=== PATIENT | male | born 2000 | race Caucasian/White ===

== ENCOUNTER 2024-02-12 11:44 | Emergency (ER) | payer OTHER, SELFPAY ==
[2024-02-12 11:48] VITALS: BP 126/86; PULSE 86; RESP 16; TEMP 35.8; O2SAT 96; BMI 38.0
[2024-02-12] MEDS: BUPIVACAINE 0.25% 30 ML INJECTION (12:10)
--- NOTE | 2024-02-12 12:14 | ED.GENADULT ---
HPI - General Adult General Date Seen: 02/12/24 Chief complaint: Laceration/Wound Stated complaint: left hand ring finger laceration Time Seen by Provider: 02/12/24 11:50 Source: patient and RN notes reviewed Mode of arrival: ambulatory Limitations: no limitations History of Present Illness HPI narrative: Patient is a 24-year-old, generally healthy young man who had an injury to his left 4th finger at work when it was caught between a piece of equipment and a piece of metal. He sustained a laceration to the dorsum of his 4th finger. He denies any loss of function, numbness, weakness. His tetanus is up-to-date. No other injuries or complaints. Related Data Home Medications Medication Instructions Recorded Confirmed bupropion 02/12/24 fluoxetine 02/12/24 Allergies Allergy/AdvReac Type Severity Reaction Status Date / Time No Known Drug Allergies Allergy Verified 02/12/24 11:51 [facility] Social History Smoking Status: Never smoker How often do you have a drink containing alcohol: monthly or less AUDIT-C Alcohol total score: 1 Non-prescribed substance use: marijuana (any form) Exam Narrative: Exam Narrative: Vital signs reviewed In general, alert, cooperative well-appearing young man. Extremities: 3 cm laceration over the dorsum of the finger overlying the PIP and area just distal to that. He does have intact flexion and extension, distal CMS is intact. Const: Vital Signs, click to edit/add: Vital Signs - 24 hr 02/12/24 11:48 Temperature 96.4 F L Pulse Rate [Pulse Oximeter] 86 Respiratory Rate 16 Blood Pressure [Ri ght Upper Arm] 126/86 Pulse Oximetry 96 Oxygen Delivery Me thod Room Air Documenting provider has reviewed patient's vital signs: yes Course Course ED Course: Procedure note: The wound was anesthetized using bupivacaine 0.5% without epinephrine. Cleaned by the ER nurse. Wound was explored with a tourniquet in place to ensure a dry field. The tendon was thoroughly examined through full range of motion, no evidence of laceration. Skin was then closed using 5 0 nylon, a total of 7 simple interrupted superficial sutures were placed. She tolerated this well without immediate complication. Tourniquet was removed, bleeding controlled. Dressing applied by the air launch weapons technician. Have recommended light duty for a couple of days, he feels he will be able to arrange this with his employer without difficulty. Return any time for signs of infection. Suture removal in about 10 days, he says his [id number] is a nurse and he plans to have her remove the stitches. Vital Signs Vital signs: Initial Vital Signs Temperature 96.4 F L 02/12/24 11:48 Temperature Source Temporal Artery Scan 02/12/24 11:48 Pulse Rate 86 02/12/24 11:48 Respiratory Rate 16 02/12/24 11:48 Blood Pressure 126/86 02/12/24 11:48 Blood Pressure Mean 99 02/12/24 11:48 Blood Pressure Position Supine 02/12/24 11:48 Pulse Oximetry 96 02/12/24 11:48 Oxygen Delivery Method Room Air 02/12/24 11:48 Vital Signs Temperature 96.4 F L 02/12/24 11:48 Pulse Rate 86 02/12/24 11:48 Respiratory Rate 16 02/12/24 11:48 Blood Pressure 126/86 02/12/24 11:48 Pulse Oximetry 96 02/12/24 11:48 Oxygen Delivery Method Room Air 02/12/24 11:48 Temperature 96.4 F L 02/12/24 11:48 Pulse Rate 86 02/12/24 11:48 Respiratory Rate 16 02/12/24 11:48 Blood Pressure 126/86 02/12/24 11:48 Pulse Oximetry 96 02/12/24 11:48 Oxygen Delivery Method Room Air 02/12/24 11:48 Medications Administered Medications: Discontinued Medications Generic Name Dose Route Start Last Admin Trade Name Freq PRN Reason Stop Dose Admin Bupivacaine HCl 3 ml 02/12/24 12:09 02/12/24 12:10 Bupivacaine 0.25% 30 Ml INJECTION 02/12/24 12:10 3 ml ONCE ONE Administration Discharge Plan Discharge Clinical Impression: Laceration of finger of left hand Qualifiers: Encounter type: initial encounter Finger: ring finger Damage to nail status: without damage Foreign body presence: without foreign body Qualified Code(s): S61.215A - Laceration without foreign body of left ring finger without damage to nail, initial encounter Patient Disposition: Home, Self-Care Condition: Improved Instructions: Finger Laceration (ED) Additional Instructions: Light duty the next couple of days, keep this area protected while it heals. Suture removal in about 10 days. Return any time for signs of infection. Prescriptions: No Action bupropion fluoxetine Follow Up/Referrals: Provider,Not a Local [Primary Care Provider] - Stand Alone Forms: [employer] Info Instructions
--- OUTSIDE RECORDS SUMMARY | 2024-02-12 12:18 | XMS_ITS ---
Author Name Unknown Organization [facility] Address [address] [place] [address] Care Team Providers Care Order Clerk Name Role Phone Unavailable Unavailable Unavailable Surgery Details Not on file Complications Check Surgery Details section. Procedure Estimated Blood Loss Check Surgery Details section. Procedure Findings Check Surgery Details section. Procedure Specimens Taken Check Surgery Details section.
--- OUTSIDE RECORDS SUMMARY | 2024-02-12 12:18 | XMS_ITS | Referral Summary ---
Author Name Unknown Organization [facility] Address [address] [place] [address] Care Team Providers Care Hazmat Technician Name Role Phone Ba Mendez D.O. Primary Care Provider [phone] Source Comments Patient records contain information from all sites at [facility]. For routine questions regarding patient records, call [phone] during business hours, M-F 8:00 AM - 5:00 PM Central Time. Record requests for emergency care only can be directed to [phone] at any time.[facility] Allergies No known active allergies Medications Medication Sig Dispensed Refills Start Date End Date Status buPROPion XL (Wellbutrin XL) 300 mg 24 hr tabletIndications:Pro blem Inattention,Anxiety Generalized Disorder Take 1 tablet (300 mg total) by mouth daily. 90 tablet 2 05/05/2023 Active FLUoxetine (PROzac) 40 mg capsule Take 1 capsule (40 mg total) by mouth daily. 30 capsule 11 07/17/2023 Active Active Problems Problem Noted Date Diagnosed Date Anxiety Generalized Disorder 01/26/2023 Nicotine Dependence Other Tobacco Product 2022 Last Assessment & Plan: He feels motivated to quit and feels like he can do it. He feels like he can substitute nicotine with caffeine. He will try nicotine lozenges. Ordered follow-up in 2 months to assess progress. Depression Major One Episode Moderate 01/26/2023 Overview: 03/14/23: PHQ 11, ADRIAN 6 Last Assessment & Plan: He has follow up scheduled with Dr. Reagan 04/28/2023. At that time, can determine how he is doing with the full effect of Prozac 40 mg. He still continues to struggle with concentration at work, so I do wonder if ADHD still might be at play for him. He is open to care coordination given PHQ score >10. Referral sent. Reviewed the value of healthful nutrition and physical activity in the maintenance of mental health. Problem Inattention 06/29/2021 Overview: 06/29/21: ADRIAN 10 (oj well), PHQ 0. Administered Adult ADHD self-report scale symptom checklist. Sometimes/very often responses checked in 4 boxes in Part A and B. Referred to Psychiatry for diagnostic clarity and recommendations for stimulants if indicated. 07/23/21: Psych Visit: Impression is that the patient has possible ADHD and if present likely in the mild range. Mild anxiety is present, generalized anxiety features, likely subthreshold for full diagnosis of ADRIAN. He does report some tendency to over think and worry about things. There are several behavioral and CBT-type concepts that could be helpful. We will first need to get more information in terms of collateral and parental input for ADHD. He will complete the [employer] adult forms and bring them back at the followup visit. I do not think we really need to treat his anxiety with an SSRI, but given impulsivity and the over-eating patterns, I did review the possible use of fluoxetine. He wishes to defer for now, which I think is probably the right decision. I also talked about atomoxetine or Wellbutrin as non-stimulant options for ADHD. He agrees to hold on these as well. I think that is a reasonable decision. I offered him psychotherapy here and IB and some basic ADHD skills, generalized anxiety skills, and coping strategies. He has not ruled it out completely, but defers for now. I will have him come back for a visit in about 6 weeks with completed [employer] forms. We will review whether we are going to substantiate that diagnosis or not, and outline medication treatment options. 01/16/23: did not complete [place] [place]uz[place] forms. No meds. Snoring 05/25/2021 Overview: 06/04/21: Overnight oximetry normal. 06/29/21: Referred to dentist for mouthguard fitting to help with snoring. Last Assessment & Plan: STOP-BANG score of 4. Given reports of snoring and elevated blood pressure, ordered home overnight oximetry as untreated obstructive sleep apnea could be contributing to his elevated blood pressure. Elevated Blood Pressure 05/25/2021 Overview: 05/25/21: BP 134/90. STOP-BANG 4. Overnight oximetery ordered. 06/04/21: Overnight oximetry normal. 06/29/21: BP 125/80 (quit vaping, cutting down on fast food, more mindful of sodium intake). Continue to monitor. Last Assessment & Plan: Evaluating for obstructive sleep apnea. Will return to clinic in 1 month for blood pressure recheck after overnight oximetry is completed. If blood pressure is persistently elevated, will initiate workup for new diagnosis of hypertension. Provided [facility] plant based overview handout, and the [employer] handout for nonpharmacologic methods of blood pressure control. His fiancee eat a plant based diet, so he thinks that he can incorporate some changes in his diet. Sore Throat 05/25/2021 Last Assessment & Plan: I suspect his sore throat was viral in etiology and has now resolved. Patient instructed to contact the clinic if his sore throat worsens, or if he develops a fever or shaking chills. Maintenance Health Adult 05/25/2021 Overview: Has successfully quit vaping with use of nicotine inhaler. Continue to monitor. Immunizations Name Administration Dates Next Due 9vHPV 07/17/2023, 3,01/23/2023(Deferr ed: Patient Refused),06/09/2016 DTaP (Infanrix, [employer]) 01/07/2003 DTaP / Hib 07/05/1999, 8,1998,1997 HepA Adult 05/05/2023, 3(Deferred: Patient Refused) HepB Adult (HEPLISAV-B) 07/17/2023,05/05,05/05/2023(Deferr ed: Patient Refused) HepB Pediatric/Adolescent 02/04/1999 HepB, Unspecified 02/04/1999 IPV 01/07/2003, 9,1998,1997 Influenza, Injectable, Quadrivalent 08/24/2023(D eferred: Patient Refused) MCV4 (Menactra)(Discontinued) 10/29/2014 MCV4, Unspecified 10/29/2014 MMR 01/07/2003,02/04/1999 SARS-COV-2 (COVID-19) - PFIZ ER (Discontinued)(12 years or older) 08/24/2023(Deferred: Patient Refused) Tdap 01/23/2023,06/10/2010 SIRISHA 06/10/2010,01/07/2003,02/04/1999 influenza vaccine quad (FLUZONE/FLUARIX) (6 months and older)(PF) 10/29/2014 Social History Tobacco Use Types Packs/Day Years Used Date Smoking Tobacco: Never Passive Smoke Exposure: Past Smokeless Tobacco: Current Chew Tobacco Cessation:Ready to Q uit: Not Asked; Counseling Given: Yes Comments:Uses Nicotine pouches Alcohol Use Standard Drinks/Week Comments Not Currently 0 (1 standard drink = 0.6 oz pur e alcohol) PHQ-2 Answer Date Recorded PHQ-2 Score 1 07/17/2023 Depression Answer Date Recor ded PHQ-9 Total Score (max 27) 7 07/17 Nutrition Answer Date Recorded Nutrition: EVOO Fat Source Unknown 12/18 Nutrition: Servings of Fruits/Vegetables per Day Not on file 12/18/2020 Dental Answer Date Recorded Dental: Regular Dentist Unknown 12/19/19 21 Sex and Gender Information Value Date Recorded Sex Assigned at Male 02/24/2023 9:48 AM CDT Gender Identity Male 02/24/2023 9:48 AM CDT Sexual Orientation Straight 02/24/2023 9: 48 AM CDT Last Filed Vital Signs Vital Sign Reading Time Taken Comments Blood Pressure 130/87 08/24/2023 3:13 PM ENDO TECH Pulse 84 08/24/2023 3:13 PM ENDO TECH Temperature 37.1 ??C (98.8 ??F) 08/24/2023 3:13 PM CS T Respiratory Rate 16 02/20/2015 11:43 AM CDT Oxygen Saturation - - Inhaled Oxygen Concentration - - Weight 116 kg (255 lb 1.2 oz) 08/24/2023 3:13 PM ENDO TECH Height 175.1 cm (5' 8.94) 05/05/2023 1:26 PM CD T Body Mass Index 37.74 05/05/2023 1:26 PM CDT Plan of Treatment Not on file Care Teams Hazmat Technician Relationship Specialty Start Date End Date Vanessa, Ba Saravia D.O. [address] [place] [phone] PCP - General 04/15/23
--- OUTSIDE RECORDS SUMMARY | 2024-02-12 12:18 | XMS_ITS | Clinical Summary ---
Author Name Unknown Organization [facility] Address [address] [place] [address] Care Team Providers Care Foot Piece Assembler Name Role Phone Ba Mendez D.O. Primary Care Provider [phone]- [phone] Source Comments Patient records contain information from all sites at [facility]. For routine questions regarding patient records, call [phone] during business hours, M-F 8:00 AM - 5:00 PM Central Time. Record requests for emergency care only can be directed to [phone] at any time.[facility] Allergies No known active allergies Medications Medication [...] visit in about 6 weeks with completed [employer] forms. We will review whether we are [...] workup for new diagnosis of hypertension. Provided [facility] plant based overview handout, and the [employer] handout for nonpharmacologic methods [...] quad (FLUZONE/FLUARIX) (6 months and older)(PF) 10/29/2014 Family History Medical History Relation Name Comments ADD Father Lion Maza Bipolar Father Lion Maza Depression Father Lion Maza Hypertension Father Lion Maza Obesity Father Lion Maza Alcohol abuse Maternal Grandfather Bill hardwick ADD Mother Maryam Hardwick Relation Name Status Comments Father Lion Maza Maternal Grandfather Bill hardwick Mother Maryam Hardwick Social History Tobacco Use Types Packs/Day Years [...] Comments Blood Pressure 130/87 08/24/2023 3:13 PM CHAINSTITCH ZIPPER SETTER Pulse 84 08/24/2023 3:13 PM CHAINSTITCH ZIPPER SETTER Temperature 37.1 ??C (98.8 ??F) 08/24/2023 3:13 PM CS T Respiratory Rate 16 02/20/2015 11:43 AM CDT Oxygen Saturation - - Inhaled Oxygen Concentration - - Weight 116 kg (255 lb 1.2 oz) 08/24/2023 3:13 PM CHAINSTITCH ZIPPER SETTER Height 175.1 cm (5' 8.94) 05/05/2023 1:26 PM CD T Body Mass Index 37.74 05/05/2023 1:26 PM CDT Plan of Treatment Health Maintenance Due Date Last Done Comments Hepatitis C Screening 1998 COVID-19 Vaccine ( season) 2023 Influenza Vaccine (#1) 2023 10/29/2014 Hepatitis A Vaccines (2 of 2 - Risk 2-dose series) 11/05/2023 05/05/2023 Depression Monitoring (PHQ-9) 11/17/2023 07/17/2023 Tobacco Cessation counseling 07/17/2024 07/17/2023 DTaP,Tdap,and Td Vaccines (8 - Td or Tdap) 01/23/2033 01/23/2023, 06/10/2010, 01/07/2003, Additional history exists HPV Vaccines Completed 07/17/2023, 02/15, 06/09/2016 Hepatitis B Vaccines Completed 07/17/2023, 05/05/2023, 02/04/1999, Additional history exists Pneumococcal vaccine (0-64 years) Aged Out No longer eligible based on patient's age to complete this topic Care Teams Foot Piece Assembler Relationship Specialty Start Date End Date Vanessa, Ba Saravia D.O. [address] [place] [phone] PCP - General 04/15/23
== END 2024-02-12 13:48 | disposition home or self-care (01) ==
PROVIDERS: Emergency Provider Emergency Medicine
DX: S61.215A Laceration without foreign body of left ring finger without damage to nail, initial encounter (principal); W23.0XXA Caught, crushed, jammed, or pinched between moving objects, initial encounter
CPT/HCPCS: 12002; 99283; J0665